=== PATIENT | female | born 1985 | race African-American/Black ===

== ENCOUNTER → 2023-09-19 06:51 | Outpatient (REF) | payer BC, SELFPAY | LOC: PNTC 06:51 | PROVIDERS: ATTENDING PHYSICIAN Obstetrics & Gynecology | DX: O09.529 Supervision of elderly multigravida, unspecified trimester (principal) | CPT/HCPCS: 76811 ==

== ENCOUNTER → 2023-10-31 06:54 | Outpatient (REF) | payer BC, SELFPAY | LOC: PNTC 06:54 | PROVIDERS: ATTENDING PHYSICIAN Obstetrics & Gynecology | DX: O09.529 Supervision of elderly multigravida, unspecified trimester (principal) | CPT/HCPCS: 76816 ==

== ENCOUNTER → 2023-12-12 06:49 | Outpatient (REF) | payer BC, SELFPAY | LOC: PNTC 06:49 | PROVIDERS: ATTENDING PHYSICIAN Obstetrics & Gynecology | DX: O09.519 Supervision of elderly primigravida, unspecified trimester (principal) | CPT/HCPCS: 76816 ==

== ENCOUNTER 2024-02-04 05:46 | Inpatient (IN) | payer BC, SELFPAY ==
[2024-02-04 05:50] VITALS: BP 133/86; BMI 30.2
[2024-02-04] MEDS: LR 1000 IV ×3 (07:00→18:15)
[2024-02-04 07:10] LABS: % Basophils 0.4 % (0-2); % Lymphocytes 21.1 % (20.5-51.1); % Monocytes 12.5 % (1.7-9.3); Absolute Eosinophils 0.1 10^3/uL (0-0.7); Absolute Immature Granulocytes 0.1 10^3/uL (0-0.05); Absolute Lymphocytes 1.6 10^3/uL (1.2-3.4); Hematocrit 37.6 % (37.0-47.0); Hemoglobin 13.3 g/dL (12.0-16.0); Mean Corp Hgb Conc. 35.4 g/dL (33.0-37.0); Mean Corpuscular Hgb 31.2 pg (27.0-31.0); Mean Corpuscular Volume 88.3 fL (81.0-99.0); Mean Platelet Volume 10.4 fL (7.4-10.4); Nucleated Red Blood Cells % 0 %; Platelet Count 175 10^3/uL (130-400); Red Blood Cell Count 4.26 10^6/uL (4.20-5.40); Red Cell Dist. Width 12.9 % (11.5-14.5); White Blood Cell Count 7.8 10^3/uL (4.8-10.8)
[2024-02-04] MEDS: PENICILLIN 110 UNITS IV (07:27)
[2024-02-04] MEDS: PENICILLIN 55 UNITS IV ×4 (11:22→23:32)
[2024-02-04] MEDS: PITOCIN 30 UNITS/NSS 500 ML IV (15:40)
[2024-02-04] MEDS: FENTANYL/BUPIVACAINE 100 EPIDURAL (17:11)
[2024-02-04] MEDS: SUBLIMAZE 100 MCG EPIDURAL (17:11)
[2024-02-04] MEDS: ZOFRAN 4 MG IV (19:11)
[2024-02-05] MEDS: FENTANYL/BUPIVACAINE 100 EPIDURAL (00:50)
[2024-02-05] MEDS: ZOFRAN 4 MG IV (01:47)
[2024-02-05] MEDS: LR 1000 IV (02:52)
[2024-02-05] MEDS: PENICILLIN 55 UNITS IV (04:09)
[2024-02-05] MEDS: PITOCIN 30 UNITS/NSS 500 ML IV (07:00)
[2024-02-05 07:13] LABS: Cord ABG Comment CORD BLOOD
[2024-02-05 07:16] LABS: B.E. Cord ABG -5.1 mMOL/L; HCO3 Cord ABG 21.6 mmol/L; O2 Saturation % Cord ABG 78.5 %; PCO2 Cord ABG 45 mmHg; PO2 Cord ABG 43 mmHg; pH Cord ABG 7.29
[2024-02-05] MEDS: PENICILLIN IV (07:47)
[2024-02-05] MEDS: SENOKOT-S 1 TABLET PO (09:08)
[2024-02-05] MEDS: MOTRIN 600 MG PO ×3 (09:08→21:34)
[2024-02-05] MEDS: PRENATAL PLUS 1 TABLET PO (09:08)
[2024-02-05] MEDS: TYLENOL 650 MG PO ×3 (09:10→21:34)
[2024-02-05] MEDS: DILAUDID 2 MG PO (20:48)
[2024-02-06] MEDS: DILAUDID 2 MG PO (04:42)
[2024-02-06 04:45] LABS: Hemoglobin 12.1 g/dL (12.0-16.0); Mean Corp Hgb Conc. 35.6 g/dL (33.0-37.0); Mean Corpuscular Hgb 32.4 pg (27.0-31.0); Mean Corpuscular Volume 90.9 fL (81.0-99.0); Mean Platelet Volume 10.4 fL (7.4-10.4); Platelet Count 159 10^3/uL (130-400); Red Blood Cell Count 3.74 10^6/uL (4.20-5.40); White Blood Cell Count 17.1 10^3/uL (4.8-10.8)
[2024-02-06 05:26] LABS: ALT (SGPT) < 10 U/L (0-35); AST (SGOT) 41 U/L (14-36); Albumin 3.4 g/dl (3.5-5.0); Alkaline Phosphatase 184 U/L (38-126); Blood Urea Nitrogen 5 mg/dl (7-17); Calcium 9.5 mg/dl (8.4-10.2); Carbon Dioxide 22 mmol/L (22-30); Chloride 108 mmol/L (98-107); Estimated Creatinine Clearance > 125 ml/min; Glucose 100 mg/dl (70-99); Potassium 3.8 mmol/L (3.5-5.1); Sodium 135 mmol/L (135-145); Total Bilirubin 0.8 mg/dl (0.2-1.3); Total Protein 6.5 g/dl (6.3-8.2); eGFR > 60.00
[2024-02-06] MEDS: TYLENOL 650 MG PO ×4 (06:18→22:21)
[2024-02-06] MEDS: MOTRIN 600 MG PO ×4 (06:19→22:20)
[2024-02-06] MEDS: PRENATAL PLUS 1 TABLET PO (09:25)
[2024-02-06] MEDS: SENOKOT-S 1 TABLET PO (09:26)
[2024-02-06 22:45] LABS: Protein/creatinine Ratio 1.8; Urine Protein 59 mg/dl
[2024-02-07 06:21] LABS: Hematocrit 35.5 % (37.0-47.0); Hemoglobin 12.6 g/dL (12.0-16.0); Mean Corp Hgb Conc. 35.5 g/dL (33.0-37.0); Mean Corpuscular Hgb 32.1 pg (27.0-31.0); Mean Corpuscular Volume 90.6 fL (81.0-99.0); Mean Platelet Volume 10.1 fL (7.4-10.4); Platelet Count 182 10^3/uL (130-400); Red Blood Cell Count 3.92 10^6/uL (4.20-5.40); White Blood Cell Count 12.4 10^3/uL (4.8-10.8)
[2024-02-07 06:31] LABS: ALT (SGPT) < 10 U/L (0-35); AST (SGOT) 35 U/L (14-36)
[2024-02-07] MEDS: SENOKOT-S 1 TABLET PO (08:21)
[2024-02-07] MEDS: PRENATAL PLUS 1 TABLET PO (08:21)
[2024-02-07] MEDS: MOTRIN 600 MG PO (08:21)
[2024-02-07 11:38] LABS: Syphilis/T. pallidum Ab Reflex Negative (Negative)
== END 2024-02-07 11:21 | disposition home or self-care (01) | DRG 807 ==
LOC: LDRP 05:46
PROVIDERS: Obstetrics & Gynecology; ADMITTING PHYSICIAN Obstetrics & Gynecology
PROC: 0KQM0ZZ Repair Perineum Muscle, Open Approach (ICD-10-PCS; 2024-02-05)
PROC: 0W8NXZZ Division of Female Perineum, External Approach (ICD-10-PCS; 2024-02-05)
PROC: 10D07Z6 Extraction of Products of Conception, Vacuum, Via Natural or Artificial Opening (ICD-10-PCS; 2024-02-05)
DX: O42.02 Full-term premature rupture of membranes, onset of labor within 24 hours of rupture (principal); Z37.0 Single live birth; O99.824 Streptococcus B carrier state complicating childbirth; O76 Abnormality in fetal heart rate and rhythm complicating labor and delivery; O70.1 Second degree perineal laceration during delivery; O66.0 Obstructed labor due to shoulder dystocia; Z3A.39 39 weeks gestation of pregnancy
CPT/HCPCS: 36415; 80053; 82570; 82803; 84156; 84450; 84460; 85025; 85027; 86780; 86850; 86900; 86901